=== PATIENT | male | born 1970 | race Hispanic/Latino ===

== ENCOUNTER 2020-09-07 14:31 | Outpatient (CLI) | payer OTHER | END 2020-09-07 14:32 | disposition home or self-care (01) | LOC: CSHRAD 14:31 | PROVIDERS: ATTEND Psychiatry & Neurology Neurology | DX: M00.1 Pneumococcal arthritis and polyarthritis (principal); Z98.890 Other specified postprocedural states | CPT/HCPCS: 72100 ==